=== PATIENT | female | born 1955 | race Caucasian/White ===

== ENCOUNTER 2021-07-12 16:02 | Outpatient (REF) | payer MEDICARE, SELFPAY ==
--- NOTE | ~2021-07-12 | MM_ITS ---
EXAMINATION: MM SCREENING DIGITAL BREAST TOMOSYNTHESIS, BILATERAL CLINICAL INFORMATION: Screening. Asymptomatic. The lifetime risk of breast cancer based on the Tyrer-Cuzick Model is 6.2%. COMPARISON: Mammography: July 16, 2019 and studies dating back to November 24, 2012 TECHNIQUE: Digital breast tomosynthesis is performed in both the craniocaudal and mediolateral oblique views along with computer-aided detection (CAD). Synthesized 2D images are generated from the tomosynthesis. FINDINGS: The breasts are heterogeneously dense, which may obscure small masses (ACR BI-RADS breast composition Category c). There are no significant masses, abnormal calcifications, or other abnormalities. MM/MM tomosynthesis screening BI IMPRESSION: There are no significant changes from prior study. ASSESSMENT: BI-RADS 1: Negative RECOMMENDATION: Routine annual mammography screening. This patient's information was entered into a reminder system with a target due date for their next mammogram.
== END 2021-07-12 16:03 | disposition home or self-care (01) ==
LOC: HO.MAMMO 16:02
PROVIDERS: Visit Provider Internal Medicine
DX: Z12.31 Encounter for screening mammogram for malignant neoplasm of breast (principal)
CPT/HCPCS: 77063; 77067

== ENCOUNTER 2021-10-09 07:17 | Day surgery (SDC) | payer MEDICARE, SELFPAY ==
--- NOTE | 2021-10-03 16:27 | PM.EVENT ---
Event Note Date of Service: 10/03/21 Event Note: H&P dictated Document [id number]
--- NOTE | 2021-10-03 18:48 | HP_ITS ---
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 She has been doing well on the mesalamine therapy and has no specific complaints. PAST MEDICAL HISTORY: 1. Ulcerative colitis as above. 2. Wandering atrial pacemaker, inactive. 3. Migraine headaches. PAST SURGICAL HISTORY: Includes diagnostic laparoscopy, section, and left inguinal hernia repair. CURRENT MEDICATIONS: Mesalamine. ALLERGIES: SULFA DRUGS. FAMILY HISTORY: This is positive for ulcerative colitis in her mother. SOCIAL HISTORY: There is no current tobacco, alcohol, or substance abuse. She is an anesthesiologist, currently retired. REVIEW OF SYSTEMS: SKIN: No pruritus. HEENT: Negative. PULMONARY: No shortness of breath or chest pain. GASTROINTESTINAL: As above. GENITOURINARY: Negative. NEUROPSYCHIATRIC: Negative. PHYSICAL EXAMINATION: vital signs are stable lungs are clear heart is regular without murmurs abdomen is soft and nontender. IMPRESSION: Ulcerative colitis. PLAN: Colonoscopy. She understands risks and benefits and agrees to proceed. MD RMASES Stafford/BLANCHE / [id number] MTDD
[2021-10-04 10:14] VITALS: BMI 17.6
[2021-10-09 07:34] VITALS: BP 106/68; PULSE 49; RESP 16; TEMP 36.8; O2SAT 98
--- NOTE | 2021-10-09 08:04 | HO.ANESPROP2 ---
[facility] Past Medical History Medical History Arthritis COVID-19 vaccine series completed Migraine Ulcerative colitis Wandering atrial pacemaker Family History Family history of problems with anesthesia: No Surgical History Surgical History H/O colonoscopy History of bunionectomy Hx of bilateral breast biopsy Hx of section Hx of dilation and curettage Hx of elbow surgery Hx of hand surgery Hx of left inguinal hernia repair Hx of tonsillectomy History of Problems with Anesthesia: No Social History Social History Are you a primary property caretaker to a significant other at home: No Do you presently have visiting nurse or other home services: No Patient Tobacco Use Status: Never used Tobacco Use of substances other than those prescribed or required for medical reasons: No Have you been hit, kicked, punched, or otherwise hurt by someone within the past year? If so, by whom?: No Are you DNR?: No Advance Directives: No (has HCP-will bring form DOS) Advance Directives Information Provided: Yes Advance Directives on File: No Recently lost weight without trying: No Eating poorly because of decreased appetite: No Nutrition Risks: No Nutritional Risk Poor oral hygiene: No Meds Allergies Allergy/AdvReac Type Severity Reaction Status Date / Time Sulfa (Sulfonamide Allergy Intermediate Hives Verified 10/09/21 07:26 Antibiotics) Home Medications Medication Instructions Recorded Confirmed Last Taken Type ifteyzxxyd-ukfffrajebwmr-ziplgzia 1 tab PO Q4-6H PRN 10/04/21 10/04/21 Unknown History 50 mg-325 mg-40 mg tablet mesalamine 1.2 gram tablet,delayed 2.4 g PO DAILY 10/04/21 10/04/21 Unknown History release (Lialda) propranolol 60 mg capsule,24 60 mg PO DAILY 10/04/21 10/04/21 10/09/21 04:45 History hr,extended release zolmitriptan 5 mg tablet (Zomig) 5 mg PO Q2-4H PRN 10/04/21 10/04/21 Unknown History lifitegrast 5 % eye drops in a 1 drp OPHTHALMIC (EYE) BID 10/09/21 10/09/21 Unknown History dropperette (Xiidra) Exam Exam Date and Time: October 09, [id number] Height,Weight and Vital Signs: Height 5 ft 5.5 in Weight 48.988 kg Last Vital Signs Temp 98.2 F 10/09/21 07:34 Pulse 49 L 10/09/21 07:34 Resp 16 10/09/21 07:34 BP 106/68 10/09/21 07:34 Pulse Ox 98 10/09/21 07:34 Airway Mallampati Class: I TM Dist: >3cm Neck ROM: Full Loose/Missing/Broken Teeth: No Heart: RRR Lungs: CTAB Assessment and Plan Assessment Anesthesia Assessment: Anesthesia Plan Discussed and Chart Reviewed Final Anesthetic Review Family History of Problems with Anesthesia: No History of Problems with Anesthesia: No NPO: Yes ASA Class: II Final Preanesthetic Review: No Changes in Pt Med Stat, Meds/Allgs Chart Reviewed, Consent Obtained/Reviewed and Anes Risks/Benef Reviewed Patient Risk: Low Procedure Risk: Low Assessment/Block/Sedation in SS: Assess/Block/Sedation-SS Anesthetic Plan Anesthetic Plan: MAC: Disposition: Standard PACU
[2021-10-09] MEDS: Lactated Ringers 1,000 ML 100 ML IVCONT (08:10)
--- NOTE | 2021-10-09 08:11 | MHC.SHP ---
Pre-Procedural Eval Section A Date of Service: 10/09/21 The patient is an INPATIENT: No Changes since office visit: No Cold of Flu in the past 2 weeks, No New Medical Problems, No Changes in Medication and No Patient answered all questions The History & Physical has been completed within 30 days and I have reviewed it.: Yes Section B Chief Complaint: ulcerative colitis Allergies: Allergies Allergy/AdvReac Type Severity Reaction Status Date / Time Sulfa (Sulfonamide Allergy Intermediate Hives Verified 10/09/21 07:26 Antibiotics) Plan I have reviewed the history and physical and performed a pertinent physical examination on my patient. No changes have occurred unless specified.
[2021-10-09 08:58] VITALS: BP 90/42; PULSE 52; RESP 14; RESP 18; TEMP 36.2; O2SAT 97
[2021-10-09 09:13] VITALS: BP 94/56; PULSE 51; RESP 18; TEMP 36.2; O2SAT 97
--- NOTE | 2021-10-09 09:28 | OP_ITS ---
SURGEON: Narayan Cheung MD INDICATIONS: Ulcerative colitis. PREOPERATIVE DIAGNOSIS: POSTOPERATIVE DIAGNOSIS: PROCEDURE PERFORMED: Colonoscopy to the terminal ileum with biopsy. ESTIMATED BLOOD LOSS: COMPLICATIONS: ANESTHESIA: ASSISTANTS: SPECIMENS: MEDICATIONS: Monitored anesthesia care. DESCRIPTION OF PROCEDURE: History and physical were performed. The risks and benefits of the procedure were explained to the patient. Informed consent was obtained. The patient was placed in left lateral decubitus position. A digital rectal exam was performed and was found to be normal. The Olympus pediatric video colonoscope was introduced into the rectum and advanced to the cecum without difficulty. The cecum was identified by transillumination, palpation, and identification of ileocecal valve. Examination was performed. The scope was removed. She tolerated the procedure well and has returned to recovery area in stable condition. FINDINGS: The terminal ileum was examined and appeared normal. This was biopsied. In the cecum was a small discrete area of ulceration measuring approximately 15 x 7 mm. Biopsies were obtained beginning in the cecum and extending all the way to the rectum in approximately all 4 quadrants every 10 cm. There was no evidence of active colitis in the remaining colon. The quality of the prep was good. Retroflexed examination was normal. IMPRESSION: Ulcerative colitis. RECOMMENDATION: 1. Follow up the biopsy results. 2. Continue Lialda. MD RAMSES Stafford/ANDREWSL / [id number]
--- NOTE | 2021-10-09 09:48 | PM.OP ---
Brief Operative Note Date of Service: 10/09/21 Pre-op diagnosis: ulcerative colitis Post-op diagnosis: same Procedure: colonoscopy Surgeon: Narayan Cheung Anesthesia: MAC Was an Airborne Sensor Specialist used for this Procedure?: No Estimated blood loss (mL): 10 Pathology: other (multiple bxs) Condition: stable Disposition: PACU
== END 2021-10-09 10:07 | disposition home or self-care (01) ==
PROVIDERS: PCP Internal Medicine; Visit Provider Internal Medicine Gastroenterology
PROC: 0DJD8ZZ Inspection of Lower Intestinal Tract, Via Natural or Artificial Opening Endoscopic (ICD-10-PCS; CPT 45378; principal; 2021-10-09 08:20)
DX: K51.90 Ulcerative colitis, unspecified, without complications (principal); Z79.899 Other long term (current) drug therapy; Z88.2 Allergy status to sulfonamides
CPT/HCPCS: 45380; 88305; J2250; J2405

== ENCOUNTER 2022-07-15 14:26 | Outpatient (REF) | payer MEDICARE, SELFPAY ==
--- NOTE | ~2022-07-15 | MM_ITS ---
EXAMINATION: MM SCREENING DIGITAL BREAST TOMOSYNTHESIS, BILATERAL CLINICAL INFORMATION: Screening. Asymptomatic. The lifetime risk of breast cancer based on the Tyrer-Cuzick Model is 6%. COMPARISON: Mammography: 07/12/2021, 07/16/2019, 06/13/2017 TECHNIQUE: Digital breast tomosynthesis is performed in both the craniocaudal and mediolateral oblique views along with computer-aided detection (CAD). Synthesized 2D images are generated from the tomosynthesis. Additional exaggerated right CC view is provided. FINDINGS: There are scattered areas of fibroglandular density (ACR BI-RADS breast composition Category b). Breast tissue composition borders on heterogeneously dense. There are no significant masses, abnormal calcifications, or other abnormalities. Parenchymal pattern is similar to prior studies. There is no developing density or architectural abnormality. The axilla and skin contours are unremarkable. No significant changes. MM/MM tomosynthesis screening BI IMPRESSION: No mammographic evidence of malignancy. ASSESSMENT: BI-RADS 1: Negative RECOMMENDATION: Routine annual mammography screening. This patient's information was entered into a reminder system with a target due date for their next mammogram.
== END 2022-07-15 14:27 | disposition home or self-care (01) ==
LOC: HO.MAMMO 14:26
PROVIDERS: Visit Provider Internal Medicine
DX: Z12.31 Encounter for screening mammogram for malignant neoplasm of breast (principal)
CPT/HCPCS: 77063; 77067

== ENCOUNTER 2023-07-17 09:30 | Outpatient (REF) | payer MEDICARE, SELFPAY ==
--- NOTE | ~2023-07-17 | MM_ITS ---
EXAMINATION: MM SCREENING DIGITAL BREAST TOMOSYNTHESIS, BILATERAL CLINICAL INFORMATION: Screening. Asymptomatic. COMPARISON: Mammography: 07/15/2022, 07/12/2021, 07/16/2019, 06/13/2017, and dating back to 2012. TECHNIQUE: Digital breast tomosynthesis is performed in both the craniocaudal and mediolateral oblique views along with computer-aided detection (CAD). Synthesized 2D images are generated from the tomosynthesis. A second left CC 3-D nipple in profile was also provided. FINDINGS: The breasts are heterogeneously dense, which may obscure small masses (ACR BI-RADS breast composition Category c). Stable benign, dystrophic appearing scattered calcifications in both breasts. No suspicious clustering or pleomorphism. No masses, or areas of architectural distortion. The parenchymal pattern is overall unchanged from prior exams. No skin or axillary changes. MM/MM tomosynthesis screening BI IMPRESSION: No mammographic evidence of malignancy. Stable benign findings. ASSESSMENT: BI-RADS BI-RADS 2 - Benign Findings RECOMMENDATION: Routine annual mammography screening. 1 year F/U This examination should not preclude the clinical evaluation of a suspicious palpable abnormality. This patient's information was entered into a reminder system with a target due date for their next mammogram.
== END 2023-07-17 09:31 | disposition home or self-care (01) ==
LOC: HO.MAMMO 09:30
PROVIDERS: PCP Internal Medicine; Visit Provider Internal Medicine
DX: Z12.31 Encounter for screening mammogram for malignant neoplasm of breast (principal)
CPT/HCPCS: 77063; 77067

== ENCOUNTER → 2023-07-17 09:45 | Outpatient (BNV) | payer MEDICARE, SELFPAY | PROVIDERS: PCP Internal Medicine; Visit Provider Radiology Diagnostic Radiology | DX: Z12.31 Encounter for screening mammogram for malignant neoplasm of breast (principal) | CPT/HCPCS: 77063; 77067 ==

== ENCOUNTER 2024-07-19 11:53 | Outpatient (REF) | payer MEDICARE, SELFPAY | END 2024-07-19 11:54 | disposition home or self-care (01) | LOC: HO.MAMMO 11:53 | PROVIDERS: PCP Internal Medicine; Visit Provider Internal Medicine | DX: Z12.31 Encounter for screening mammogram for malignant neoplasm of breast (principal) | CPT/HCPCS: 77063; 77067 ==

== ENCOUNTER → 2024-07-19 12:00 | Outpatient (BNV) | payer MEDICARE, SELFPAY | PROVIDERS: PCP Internal Medicine; Visit Provider Internal Medicine | DX: Z12.31 Encounter for screening mammogram for malignant neoplasm of breast (principal) | CPT/HCPCS: 77063; 77067 ==

== ENCOUNTER 2024-11-12 06:54 | Day surgery (SDC) | payer MEDICARE, SELFPAY ==
[2024-11-10 12:59] VITALS: BMI 18.8
--- NOTE | 2024-11-10 14:10 | HO.ANESPROP2 ---
Documented by User: Annabella Dominguez NP 11/10/24 14:10 HPI - Anesthesia Eval Consult details Narrative: 69yo F for Colon[facility] Past Medical History Medical History Tinnitus Ulcerative colitis Arthritis Migraine Family History Family history of problems with anesthesia: No Surgical History Surgical History Hx of elbow surgery Hx of section Hx of bilateral breast biopsy Hx of left inguinal hernia repair Hx of dilation and curettage Hx of hand surgery Hx of tonsillectomy H/O colonoscopy History of bunionectomy History of Problems with Anesthesia: No Social History Social History Are you a primary hospice patient care secretary to a significant other at home: No Do you presently have visiting nurse or other home services: No Patient Tobacco Use Status: Never used Tobacco Meds Allergies Allergy/AdvReac Type Severity Reaction Status Date / Time Sulfa (Sulfonamide Allergy Intermediate Hives Verified 11/12/24 07:21 Antibiotics) Home Medications ?Medication ?Instructions ?Recorded ?Confirmed ?Last Taken ?Type mesalamine 1.2 gram tablet,delayed 2.4 g PO DAILY 10/04/21 11/12/24 Unknown History release (Lialda) propranolol 60 mg capsule,24 60 mg PO DAILY 10/04/21 11/12/24 10/09/21 04:45 History hr,extended release lifitegrast 5 % eye drops in a 1 drp ophthalmic (eye) BID 10/09/21 11/12/24 Unknown History dropperette (Xiidra) multivitamin 1 tab PO DAILY 11/10/24 11/12/24 Unknown History rizatriptan 10 mg tablet 10 mg PO ONCE PRN Migraine Headache 11/10/24 11/12/24 Unknown History vitamin K2 45 mg PO DAILY 11/12/24 11/12/24 Unknown History Exam Height,Weight and Vital Signs: Height 5 ft 4.8 in Weight 51 kg Assessment and Plan Assessment Anesthesia Assessment: Chart Reviewed Final Anesthetic Review Family History of Problems with Anesthesia: No History of Problems with Anesthesia: No Documented by User: Arlet Zarate MD 11/12/24 08:18 [facility] Past Medical History Medical History Tinnitus Ulcerative colitis Arthritis Migraine Family History Family history of problems with anesthesia: No Surgical History Surgical History Hx of elbow surgery Hx of section Hx of bilateral breast biopsy Hx of left inguinal hernia repair Hx of dilation and curettage Hx of hand surgery Hx of tonsillectomy H/O colonoscopy History of bunionectomy History of Problems with Anesthesia: No Social History Social History Are you a primary hospice patient care secretary to a significant other at home: No Do you presently have visiting nurse or other home services: No Patient Tobacco Use Status: Never used Tobacco Meds Allergies Allergy/AdvReac Type Severity Reaction Status Date / Time Sulfa (Sulfonamide Allergy Intermediate Hives Verified 11/12/24 07:21 Antibiotics) Home Medications ?Medication ?Instructions ?Recorded ?Confirmed ?Last Taken ?Type mesalamine 1.2 gram tablet,delayed 2.4 g PO DAILY 10/04/21 11/12/24 Unknown History release (Lialda) propranolol 60 mg capsule,24 60 mg PO DAILY 10/04/21 11/12/24 10/09/21 04:45 History hr,extended release lifitegrast 5 % eye drops in a 1 drp ophthalmic (eye) BID 10/09/21 11/12/24 Unknown History dropperette (Xiidra) multivitamin 1 tab PO DAILY 11/10/24 11/12/24 Unknown History rizatriptan 10 mg tablet 10 mg PO ONCE PRN Migraine Headache 11/10/24 11/12/24 Unknown History vitamin K2 45 mg PO DAILY 11/12/24 11/12/24 Unknown History Exam Height,Weight and Vital Signs: Height 5 ft 4.8 in Weight 51 kg Vital Signs Temp Pulse Resp BP Pulse Ox O2 Del Method 11/12/24 07:38 97.9 F 53 16 121/75 98 Room Air Airway Mallampati Class: II TM Dist: >3cm Neck ROM: Full Loose/Missing/Broken Teeth: No Heart: RRR Lungs: CTAB Assessment and Plan Assessment Anesthesia Assessment: Anesthesia Plan Discussed and Chart Reviewed Final Anesthetic Review Family History of Problems with Anesthesia: No History of Problems with Anesthesia: No NPO: Yes ASA Class: II Final Preanesthetic Review: No Changes in Pt Med Stat, Meds/Allgs Chart Reviewed, Consent Obtained/Reviewed and Anes Risks/Benef Reviewed Patient Risk: Low Procedure Risk: Low Assessment/Block/Sedation in SS: Assess/Block/Sedation-SS Anesthetic Plan Anesthetic Plan: TIVA Disposition: Standard PACU
--- NOTE | 2024-11-10 18:54 | HP_ITS ---
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 She has been taking mesalamine and symptoms have been well controlled. She has no complaints of rectal bleeding or change in her bowel habits. Weight and appetite have been stable. She last underwent colonoscopy in 2021, which showed no active disease and no dysplasia. PAST MEDICAL HISTORY: 1. Ulcerative colitis. 2. Migraine headaches. PAST SURGICAL HISTORY: Diagnostic laparoscopy, section, and left inguinal hernia repair. CURRENT MEDICATIONS: Her current medication list is reviewed in the chart. ALLERGIES: SULFA. FAMILY HISTORY: Positive for ulcerative colitis in her mother. SOCIAL HISTORY: There are no current substance abuse issues, tobacco, or alcohol problems. REVIEW OF SYSTEMS: SKIN: No pruritus. HEENT: Negative. CARDIOPULMONARY: No shortness of breath or chest pain. GASTROINTESTINAL: As above. GENITOURINARY: Negative. NEUROPSYCHIATRIC: Negative. PHYSICAL EXAMINATION: GENERAL: Shows a pleasant female, in no acute distress. VITAL SIGNS: Stable. LUNGS: Clear HEART: Normal S1 and S2 ABDOMEN: Soft, nontender IMPRESSION: Ulcerative colitis. PLAN: Colonoscopy. Risks and benefits of the procedure have been discussed with the patient who understands and agrees to proceed. MD RAMSES Stafford/BLANCHE / [id number] MTDD
--- NOTE | 2024-11-12 07:25 | MHC.SHP ---
Pre-Procedural Eval Section A - 24 Hr Update-Section A only Date of Service: 11/12/24 The patient is an INPATIENT: No Changes since office visit: No Cold of Flu in the past 2 weeks, No New Medical Problems, No Changes in Medication and No Patient answered all questions The patient has been examined within 24 hours of the surgical procedure. The History & Physical has been completed within 30 days and I have reviewed it.: Yes Section B - Complete if H&P > 30 days Chief Complaint: Encounter for screening for malignant neoplasm of Allergies: Allergies Allergy/AdvReac Type Severity Reaction Status Date / Time Sulfa (Sulfonamide Allergy Intermediate Hives Verified 11/12/24 07:21 Antibiotics) Plan I have reviewed the history and physical and performed a pertinent physical examination on my patient. No changes have occurred unless specified. Time Spent With Patient Time: Total time managing care of this patient today ____ minutes.
[2024-11-12 07:38] VITALS: BP 121/75; PULSE 53; RESP 16; TEMP 36.6; O2SAT 98; BMI 17.8
[2024-11-12] MEDS: Lactated Ringers 1,000 ML 100 ML IVCONT (07:52)
[2024-11-12 09:20] VITALS: BP 89/51; PULSE 50; RESP 16; TEMP 36.6
--- NOTE | 2024-11-12 09:23 | P.BOP_ITS ---
Brief Operative Note Date of Service: 11/12/24 Pre-op diagnosis: ulcerative colitis Post-op diagnosis: same Procedure: colonoscopy Surgeon: Narayan Cheung MD Anesthesia: MAC Was an Assistant To The Dean used for this Procedure?: No Estimated blood loss (mL): 5 Pathology: other Condition: stable Disposition: PACU
[2024-11-12 09:30] VITALS: BP 93/54; PULSE 52; RESP 16; O2SAT 98
--- NOTE | 2024-11-12 09:36 | OP_ITS ---
DATE OF SERVICE: 11/12/2024 SURGEON: Narayan Cheung MD INDICATIONS: Ulcerative colitis. PREOPERATIVE DIAGNOSIS: POSTOPERATIVE DIAGNOSIS: PROCEDURE PERFORMED: Colonoscopy to the terminal ileum with biopsy. ESTIMATED BLOOD LOSS: COMPLICATIONS: ANESTHESIA: Medications, monitored anesthesia care. ASSISTANTS: SPECIMENS: DESCRIPTION OF PROCEDURE: History and physical was performed. The risks and benefits of the procedure were explained to the patient and informed consent was obtained. The patient was placed in the left lateral decubitus position. A digital rectal exam was performed and was found to be normal. The Olympus pediatric video colonoscope was introduced in the rectum and advanced to the cecum. The cecum was identified by transillumination, palpation, and identification of ileocecal valve. Examination was performed. The scope was removed. She tolerated the procedure well and was taken to recovery room in stable condition. FINDINGS: The terminal ileum was normal. This was biopsied. The visualized colonic mucosa was normal without evidence of active colitis and the mucosa appeared normal. Biopsies were obtained in all 4 quadrants approximately every 10 cm beginning in the cecum and extending to the rectum. No polyps were identified. Retroflexed examination showed some small internal hemorrhoids. There were some external hemorrhoids noted on withdrawal of the colonoscope. IMPRESSION: Ulcerative colitis. RECOMMENDATIONS: Follow up the biopsy results. MD RAMSES Stafford/BLANCHE / [id number]
== END 2024-11-12 10:16 | disposition home or self-care (01) ==
PROVIDERS: PCP Internal Medicine; Visit Provider Internal Medicine Gastroenterology
PROC: 0DJD8ZZ Inspection of Lower Intestinal Tract, Via Natural or Artificial Opening Endoscopic (ICD-10-PCS; CPT 45378; principal; 2024-11-12 08:20)
DX: Z12.11 Encounter for screening for malignant neoplasm of colon (principal); K51.90 Ulcerative colitis, unspecified, without complications; K64.8 Other hemorrhoids; K64.4 Residual hemorrhoidal skin tags; G43.909 Migraine, unspecified, not intractable, without status migrainosus; Z79.899 Other long term (current) drug therapy; Z88.2 Allergy status to sulfonamides; Z98.890 Other specified postprocedural states
CPT/HCPCS: 45380; 88305; J2003; J2704

== ENCOUNTER 2025-03-01 10:43 | Outpatient (REF) | payer MEDICARE, SELFPAY ==
--- OUTSIDE RECORDS SUMMARY | 2024-10-29 03:30 | XMS_ITS ---
Author Organization [facility] Address [address] [place] [phone] Care Team Providers Care Motor Vehicles Inspector Name Role Phone Xavier Molina, Soledad Primary Care Provider Unav ailNarayan Mckeon Jr Unavailable [phone] Narayan Cheung Unavailable Unavailable REASON FOR VISIT ulcerative colitis Encounters Encounter Location Date Provider Diagnosis [facility] [place] [address] [place] [phone] 10/29/2024 Narayan Cheung Jr Plan Of Treatment No Information Progress Notes * ZOE DEEEDOB:[birth year] (69 yo F)Acc No.[id number]:10/29/2024 COLON WITH MAC Patient: RAMSEY MAST Provider: Suzi Cheung MD :1955 A ge:69 Y S ex:Female Date:10/29/2024 Address:[address] [place], [place] [phone] Pcp:Soledad Park M.D. Subjective: * Chief Complaints: * 1 . Ulcerative colitis. * Medical History: Objective: * Vitals: Assessment: Plan: * Treatment: * * The named appointment provid er may or may not be the originator of this progress note, and it is not deemed complete until electronically signed by the appointment provider. Sign off status: Pending * Provider: Suzi Cheung MD Date: 0 10/29/2024 Generated for Printi ng/Faxing/eTransmitting on: 0 03/01/2025 11:50 AM EDT
--- NOTE | ~2025-03-01 | MM_ITS ---
EXAMINATION: DXA BONE DENSITY AXIAL HISTORY: OSTEOPOROSIS TECHNIQUE: MVERSE Dual energy absorptiometry (DEXA) of the lumbar spine, total left hip, and femoral neck was performed. COMPARISON: There are no prior studies for comparison. FINDINGS: The bone mineral density of the lumbar spine is 0.979 g/cm2, corresponding to a T-score of -1.7, and a Z-score of 0.5. This is indicative of osteopenia. The bone mineral density of the left total hip is 0.811 g/cm2, corresponding to a T-score of -1.6, and a Z-score of .2. This is indicative of osteopenia. The bone mineral density of the left femoral neck is 0.694 g/cm2, corresponding to a T-score of -2.5, and a Z-score of -0.5. This is indicative of osteoporosis. FRACTURE RISK: The FRAX index suggests a risk of major osteoporotic fracture of 12.1%, and of hip fracture 3.1%. MM/XR DEXA axial skeleton IMPRESSION: Based on bone mineral density, and according to World Health Organization (WHO) criteria, the diagnosis is consistent with osteoporosis. Statistically, 68% of repeat scans fall within 1 SD (+/- 0.010 g/cm2 for AP spine L1-L4) and 1 SD (+/- 0.012 g/cm2 for femur total) FRAX is a trademark of the [employer]'s [employer] Met[employer] Disease, a World Health Organization (WHO) Collaborating Center. Electronically signed by: Benjamin Mcdonald MD 03/01/2025 11:16 AM EDT
--- OUTSIDE RECORDS SUMMARY | 2025-03-01 11:50 | XMS_ITS | Patient Health Record ---
Author Organization [facility] Address [address] [place] [address] Care Team Providers Care Financial Accounting Manager Name Role Phone Soledad Park Primary Care Provider UnavailJose Arroyo Unavailable [phone] Allergies Allergen (clinical drug ingredient) Drug/Non Drug Allergy documented on EMR Reaction Allergy Type Onset Date Status ibuprofen Advil avoid due to colitis Drug Allergy Active Aleve avoid due to colitis Drug Allergy Active aspirin Aspirin avoid due to colitis Drug Allergy Active sulfamethoxazole / trimethoprim Bactrim hives Drug Allergy Active Motrin avoid due to colitis Drug Allergy Active Reason For Referral No Information Medications Medication SIG (Take, Route, Frequency, Duration) Notes Start Date End Date Status Delzicol 1.6 g Not-T aking Fioricet Not-Taking ZOLMitriptan 5 MG Orally No t-Taking Night Splint AFO - L1930 as directed Active Lialda 1.2 gm 2 tablets Orally Onc e a day Not-Taking Physical Therapy . . . 2-3x/week; Duration: 3-4 weeks Not-Taking Gemtesa 75 MG 1 tablet Orally Once a day; Duration: 30 day(s) Active Voltaren 1 % as directed Transdermal Not-Taking Mesalamine Active Propranolol HCl 60 MG 1 tablet Orally On ce a day; Duration: 30 day(s) Active Gabapentin 300 MG 1 tablet Orally Once a day Not-Taking oxyCODONE HCl 5 ml as needed N ot-Taking Social History Tobacco Use: Social History Observation Description Date Details (start date - stop date) Never Smoker NA - NA Tobacco Use/Smoking Question Answer Notes Are you a: nonsmoker Additional Findings: Tobacco Non-User Aggressive non-smoker Alcohol Screen Question Answer Notes Did you have a drink contain ing alcohol in the past year? Yes How often did you have a dri nk containing alcohol in the past year? 2 to 4 times a month (2 points) How many drinks did you have on a typical day when you were drinking in the past year? 1 or 2 drinks (0 point) How often did you have 6 or more drinks on one occasion in the past year? Never (0 point) Points 2 Interpretation Negative Tobacco use other than smoking: Question Answer Notes Are you an other tobacco user? 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) Active confirmed Plan Of Treatment Pending Test Test Name Order Date X ray : Foot, left 3V 08/28/2018 X ray : Foot, left 3V 01/12/2019 X ray : Foot, left 3V 02/11/2019 X ray : Foot, left 3V 10/25/2022 X ray : Foot, right 3V 10/25/2022 [id number], [id number]-LAHSO/INJECT, JOINT/BURSA 0 08/28/2018 X ray : Ankle, right 3V 08/28/2018 Insurance Providers Payer Name Payer Address Payer Phone Subscriber Number Group Number Insured Name Patient Relationship to Insured Coverage Start Date Coverage End Date [facility] 65 Medicare Preferred [address] [place] [address] [phone] [id number] Vaishnavi Morales Self - patient is the insured Medical (General) History Medical History History ICD Code Headaches/Migraines Chicken pox Colitis Syncope Overactive bladder (OAB) Surgical History Surgery Date(Month/Year) tonsillectomy 1978 tendon repair LT hand 1990 diagnostic laproscopy 1994 LT inguinal hernia repair 1995 breast biopsy (beigne) 1997 lateral release RT elbow 2009 section 1998 Parmar Left 01/07/2019
--- OUTSIDE RECORDS SUMMARY | 2025-03-01 11:50 | XMS_ITS | Encounter Summary ---
Author Organization [facility] Address [address] [place] [address] Phone Care Team Providers Care Chief Electrician Name Role Phone Soledad Park MD Unavailable [phone] Soledad Park MD Primary Care Provider Alesia Broussard CANCER PROGRAM CONSULTANT Primary Care Provider Malathi Trejo CANCER PROGRAM CONSULTANT Primary Care Provider Soledad Park MD Primary Care Provider Bety Roes MD Unavailable Encounter Details Date Type Department Care Team (Late st Contact Info) Description 11/05/2017 Transcribe Orders [facility] [address] [place] [address] [place] [address] Soledad Park MD [address] [place] [address], 2nd [place] [address] Cough (Primary Dx) Social History Tobacco Use Types Packs/Day Years Used Date Smoking Tobacco: Never Smokeless Tobacco: Never Alcohol Use Standard Drinks/Week Comments Yes 3 (1 standard drink = 0.6 oz pur e alcohol) Comments Unknown Sex and Gender Information Value Date Recorded Sex Assigned at Not on file Legal Sex Female 7:47 PM EST Gender Identity Not on file Sexual Orientation Not on file 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 on file prior Wing Not on file Not on file Not on file documented as of this encounter Plan of Treatment Upcoming Encounters Date Type Department Care Team (Late st Contact Info) Description 04/14/2025 12:15 PM EDT Office Visit [facility] [address] [place] [address] Soledad Park MD [address] [place] [address] Maria Guadalupe Garcia, PT [address] [place] [address] 04/21/2025 12:15 PM EDT Office Visit [facility] [address] [place] [address] Soledad Park MD [address] [place] [address] Maria Guadalupe Garcia, PT [address] [place] [address] 04/25/2025 11:30 AM EDT Office Visit [facility] [address] [place] [address] Soledad Park MD [address] [place] [address] Eliseo Mccloud, CAFETERIA MANAGER [address] [place] [address] 04/28/2025 12:15 PM EDT Office Visit [facility] [address] [place] [address] Soledad Park MD [address] [place] [address] Maria Guadalupe Garcia, PT [address] [place] [address] 05/02/2025 11:30 AM EDT Office Visit [facility] [address] [place] [address] Soledad Park MD [address] [place] [address] Eliseo Mccloud, [address] [address] 05/05/2025 12:15 PM EDT Office Visit [facility] [address] [place] [address] Soledad Park MD [address] [place] [address] Maria Guadalupe Garcia, PT [address] [place] [address] 05/09/2025 11:30 AM EDT Office Visit [facility] [address] [place] [address] Soledad Park MD [address] [place] [address] Eliseo Mccloud, [address] [address] 05/12/2025 1:00 PM EDT Office Visit [facility] [address] [place] [address] Soledad Park MD [address] [place] [address] [email or web address] Maria Guadalupe Garcia, PT [address] [place] [address] 09/12/2025 11:30 AM EST Office Visit [facility] [address] [place] [address] [place] [address] Soledad Park MD [address] [place] [address] [email or web address] documented as of this encounter Visit Diagnoses Diagnosis Cough- Primary documented in this encounter Additional Health Concerns Infection Onset Date Last Indicated Resolved Time CoV-Risk 11/19/2019 11/19/2019 12/03/2019 1:23 AM EDT documented as of this encounter Care Teams Chief Electrician Relationship Specialty Start Date End Date Soledad Park MD [address] [place] [address] PCP - General 08/07/17 05/21/18 Alesia Broussard NP [address] [place] [address] [place] [address] PCP - General Family Medicine 05/22/18 11/14/19 Malathi Trejo NP [address] [place] [address] PCP - General 11/15/19 12/28/20 Soledad Park MD [address] [place] [address] [email or web address] PCP - General Internal Medicine 12/29/20 Soledad aPrk MD [address] [place] [address], 2[address] [place] [address] [email or web address] Historical LMR Provider 05/24/17 Bety Rose MD [address] [place] [address] Dermatology 12/29/20 documented as of this encounter Additional Source Comments The information contained in this document represents components of the legal health record. It is not the complete legal health record.[facility]
== END 2025-03-01 10:44 | disposition home or self-care (01) ==
LOC: HO.MAMMO 10:43
PROVIDERS: PCP Internal Medicine; Visit Provider Internal Medicine
DX: M81.6 Localized osteoporosis [Lequesne] (principal)
CPT/HCPCS: 77080

== ENCOUNTER → 2025-03-01 11:00 | Outpatient (BNV) | payer MEDICARE, SELFPAY | PROVIDERS: PCP Internal Medicine; Visit Provider Radiology Diagnostic Radiology | DX: E28.39 Other primary ovarian failure (principal) | CPT/HCPCS: 77080 ==

== ENCOUNTER 2025-07-22 11:32 | Outpatient (REF) | payer MEDICARE, SELFPAY ==
--- OUTSIDE RECORDS SUMMARY | 2024-10-29 02:30 | XMS_ITS ---
Author Organization [facility] Address [address] [place] [phone] Care Team Providers Care Cv/Cvn Cv Tsc System Operator Name Role Phone Xavier Molina, Soledad Primary Care Provider Unav ailable Narayan Cheung Jr Unavailable Narayan Cheung Unavailable Unavailable REASON FOR VISIT ulcerative colitis Encounters Encounter Location Date Provider Diagnosis [facility] Outpatient [address] [place] [id number] 10/29/2024 Narayan Cheung Jr Plan Of Treatment No Information Progress Notes * ZOE DEEEDOB:[birth year] (70 yo F)Acc No.[id number]:10/29/2024 COLON WITH MAC Patient: RAMSEY MAST Provider: Suzi Cheung MD :1955 A ge:69 Y S ex:Female Date:10/29/2024 Address:[address] [place], [place] [id number] Pcp:Soledad Park M.D. Subjective: * Chief Complaints: * U lcerative colitis * The named appointment provid er may or may not be the originator of this progress note, and it is not deemed complete until electronically signed by the appointment provider. Sign off status: Pending * Provider: Suzi Cheung MD Date: 0 10/29/2024 Generated for Rejii ng/Terezag/eTransmitting on: 1 09/22/2024 01:40 PM EST
--- OUTSIDE RECORDS SUMMARY | 2024-11-12 03:20 | XMS_ITS ---
Author Organization [facility] Address [address] [place] [phone] Care Team Providers Care Monument Carver Name Role Phone Soledad Park M.D. Primary Care Provider Narayan Gibbons Jr Unavailable Narayan Cheung Unavailable Unavailable REASON FOR VISIT ulcerative colitis Medications Medication SIG (Take, Route, Frequency, Duration) Notes Start Date End Date Status predniSONE 10 MG Tablet 3 tablets daily with food for 7-10 days, taper by one tablet weekly. Orally Once a day 04/14/2015 Active Delzicol 400 MG Capsule Delayed Release Four capsules Orally 3 times a day; Duration: 30 day(s) 04/14/2015 Active Lialda 1.2 GM Tablet Delayed Release 2 tablets b.i.d. Orally; Duration: 90 days 05/18/2015 Active Encounters Encounter Location Date Provider Diagnosis [facility] Outpatient [address] [place] [phone] 11/12/2024 Narayan Cheung Jr Ulcerative colitis K51.90 Assessments Encounter Date Diagnosis (ICD Code) Assessment Notes Treatment Notes Treatment Clinical Notes Section Notes 11/12/2024 Ulcerative colitis (ICD-10 - K51.90) Plan Of Treatment No Information Progress Notes * ARUNADEWAYNEKEVINOB:[birth year] (70 yo F)Acc No.[id number]:11/12/2024 COLON WITH MAC Patient: RAMSEY MAST Provider: Suzi Cheung MD :1955 A ge:69 Y S ex:Female Date:11/12/2024 [address] [facility] Pcp:Soledad Park M.D. Subjective: * Chief Complaints: * U lcerative colitis * Medications: T akingpredniSONE 10 MG Tablet 3 tablets daily with food for 7-10 days, taper by one tablet weekly. Orally Once a day Delzicol 400 MG Capsule Delayed Release Four capsules Orally 3 times a day Lialda 1.2 GM Tablet Delayed Release 2 tablets b.i.d. Orally Taking predniSONE 10 MG Tablet 3 tablets daily with food for 7-10 days, taper by one tablet weekly. Orally Once a day Taking Delzicol 400 MG Capsule Delayed Release Four capsules Orally 3 times a day Taking Lialda 1.2 GM Tablet Delayed Release 2 tablets b.i.d. Orally Assessment: * Assessment: 1. U lcerative colitis - K51.90 (Primary) Plan: * Procedure Codes: 4 5380 COLONOSCOPY AND [id number] INTRVL 3+YRS PTS CLNSCP DOCD Billing Information: * Procedure Codes: 46707 COLONOSCOPY AND BIOPSY. 0529F INTRVL 3+YRS PTS CLNSCP DOCD. * The named appointment provid er may or may not be the originator of this progress note, and it is not deemed complete until electronically signed by the appointment provider. Sign off status: Pending * Provider: Suzi Cheung MD Date: 0 11/12/2024 Generated for Steve mckinney/Alejandro/Korinaitting on: 1 09/22/2024 01:41 PM EST
--- NOTE | ~2025-07-22 | MM_ITS ---
EXAMINATION: MM SCREENING DIGITAL BREAST TOMOSYNTHESIS, BILATERAL CLINICAL INFORMATION: Screening. Asymptomatic. COMPARISON: Mammography: Comparison is made with available priors TECHNIQUE: Digital breast mammography with tomosynthesis is performed in both the craniocaudal and mediolateral oblique views along with computer-aided detection (CAD). FINDINGS: The breasts are heterogeneously dense, which may obscure small masses. There are no significant masses, abnormal calcifications, or other abnormalities. MM/MM tomosynthesis screening BI IMPRESSION: No mammographic evidence of malignancy. ASSESSMENT: BI-RADS Category 1: Negative RECOMMENDATION: Routine annual mammography screening. 1 year F/U This examination should not preclude the clinical evaluation of a suspicious palpable abnormality. This patient's information was entered into a reminder system with a target due date for their next mammogram. Electronically signed by: Staci Rudd DO 07/26/2025 10:36 AM [facility]
--- OUTSIDE RECORDS SUMMARY | 2025-07-22 13:41 | XMS_ITS | Encounter Summary ---
Author Organization [facility] Address [address] [place] [address] Phone Care Team Providers Care Utility Tender Carding Name Role Phone Soledad Park MD Unavailable Soledad Park MD Primary Care Provider Alesia Broussard KNOT TYING OPERATOR Primary Care Provider Unava Malathi Peterson KNOT TYING OPERATOR Primary Care Provider Soledad Park MD Primary Care Provider Bety Rose MD Unavailable [phone] Encounter Details Date Type Department Care Team (Late st Contact Info) Description 11/05/2017 Transcribe Orders [facility] [address] [place] [address] Soledad Park MD [address] [place] [address], [address] [place] [address] Cough (Primary Dx) Social History Tobacco Use [...] 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 on file Not on file Not on file documented as of this encounter Plan of Treatment Upcoming Encounters Date Type Department Care Team (Late st Contact Info) Description 09/12/2025 11:30 AM EST Office Visit [facility] Primary Care [address] [place] [address] Soledad Park MD [address] [place] [address] documented as of this encounter Visit Diagnoses Diagnosis Cough- Primary documented in this encounter Additional Health Concerns Infection Onset Date Last Indicated Resolved Time CoV-Risk 11/19/2019 11/19/2019 12/03/2019 1:23 AM EDT documented as of this encounter Care Teams Utility Tender Carding Relationship Specialty Start Date End Date Soledad Park MD [address] [place] [address] PCP - General 08/07/17 05/21/18 Alesia Broussard, KNOT TYING OPERATOR PCP - General Family Medicine 05/22/18 11/14/19 Malathi Trejo NP [address] [place] [address] PCP - General 11/15/19 12/28/20 Soledad Park MD [address] [place] [address] PCP - General Internal Medicine 12/29/20 Soledad Park MD [address] [place] [address] Historical LMR Provider 05/24/17 Bety Rose MD [address] [place] [address] Dermatology 12/29/20 documented as of this encounter Additional Source Comments The information contained in this document represents components of the legal health record. It is not the complete legal health record.[facility]
--- OUTSIDE RECORDS SUMMARY | 2025-07-22 13:41 | XMS_ITS | Patient Health Record ---
Author Organization [facility] Address [address] [place] [address] Care Team Providers Care Group Practice Pediatrician Name Role Phone Soledad Park M.D. Primary Care Provider Unav Narayan Mackenzie Jr Unavailable Narayan Cheung Unavailable Unavailable Results Component Value Reference Range Notes Pathology Reviewed date:11/19/2024 08:25:49 AM Interpretation: Performing Lab:[facility], [address] [place] [phone] Notes/Report: Reason For Referral No Information Medications Medication SIG (Take, Route, Frequency, Duration) Notes Start Date End Date Status predniSONE 10 MG Tablet 3 tablets daily with food for 7-10 days, taper by one tablet weekly. Orally Once a day 04/14/2015 Active Lialda 1.2 GM Tablet Delayed Release 4 Orally Once a day; Duration: 90 days 05/18/2015 Active Delzicol 400 MG Capsule Delayed Release Four capsules Orally 3 times a day; Duration: 30 day(s) 04/14/2015 Active Problems Problem Type SNOMED Code ICD Code Onset Dates Problem Status W/U Status Risk Notes Problem Ulcerative colitis (97272368) Ulcerative colitis (K51.90) Active confirmed Problem Ulcerative colitis (70078589) Ulcerative colitis with complication, unspecified location (K51.919) Active confirmed Encounters Encounter Location Date Provider Diagnosis [facility] Out[facility] [address] [place] [id number] 11/12/2024 Narayan Cheung Jr Ulcerative colitis K51.90 [facility] [address] [place] [phone] 08/24/2024 Narayan Cheung Jr Ulcerative colitis with complication, unspecified location K51.919 [facility] [address] [place] [address] 11/10/2024 Narayan Cheung Jr [facility] [address] [place] [address] 11/19/2024 Narayan Cheung Jr [facility] [address] [place] [phone] 03/04/2025 Narayan Cheung Jr [facility] [address] [place] [address] 06/15/2025 Narayan Cheung Jr Assessments Encounter Date Diagnosis (ICD Code) Assessment Notes Treatment Notes Treatment Clinical Notes Section Notes 11/12/2024 Ulcerative colitis (ICD-10 - K51.90) 08/24/2024 Ulcerative colitis with complication, unspecified location (ICD-10 - K51.919) Plan Of Treatment Future Test Test Name Order Date COLONOSCOPY 08/26/2024 Insurance Providers Payer Name Payer Address Payer Phone Subscriber Number Group Number Insured Name Patient Relationship to Insured Coverage Start Date Coverage End Date [facility] [address] [place] [address] [id number] RAMSEY DEE Self - patient is the insured Medical (General) History Medical History History ICD Code Ulcerative colitis, left-sided , colonos copy 10/23, no active disease Overactive bladder Migraine headaches
--- OUTSIDE RECORDS SUMMARY | 2025-07-22 13:41 | XMS_ITS | Encounter Summary ---
Author Organization [facility] Address [address] [place] [address] Phone Care Team Providers Care Fish Rod Maker Name Role Phone Soledad Park MD Unavailable [phone] Soledad Park MD Primary Care Provider Alesia Broussard NP Primary Care Provider Unava Malathi Peterson NP Primary Care Provider Soledad Park MD Primary Care Provider Bety Rose MD Unavailable [phone] Reason for Referral * Outpatient Procedure - Closed Specialty Diagnoses / Procedures Referred By Contac t Referred To Contact Diagnoses Syncope and collapse Procedures Adult Echo TTE Alesia Broussard NP Referral ID Status Reason Start Date Expiration Date Visits Re quested Visits Authorized [id number] Closed 05/21/2018 05/21/2019 1 1 Encounter Details Date Type Department Care Team (Late st Contact Info) Description 05/21/2018 Ancillary Orders [facility] Department [address] [place] [address] Alesia Broussard NP Syncope and collapse Social History Tobacco Use Types Packs/Day Years [...] 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 on file Not on file Not on file documented as of this encounter Plan of Treatment Upcoming Encounters Date Type Department Care Team (Late st Contact Info) Description 09/12/2025 11:30 AM EST Office Visit [facility] Primary Care [address] [place] [address] Soledad Park MD [address] [facility], [address] [place] [address] documented as of this encounter Results * TTE COMPREHENSIVE (05/22/2018 1:13 PM EDT) Body Surface Area 1.6 m2 Height 165 m Weight 52 kg Systolic BP 110 mmHg Diastolic BP 68 mmHg Left Atrium Dimension Anterior-Posterior 27 15 - 40 mm Aortic Valve Peak Velocity 1,320.00 mm/s Aortic Valve Peak Gradient 7.00 mmHg Aortic Sinus Diameter 28 mm Ascending Aorta Diameter 30 mm Inferior Vena Cava Diameter 11 0.0 - 21 mm Interventricular Septum Thickness 6 mm Left Ventricle Internal Diameter End Diastole 43 37 - 52 mm Left Ventricle Internal Diameter End Systole 23 22 - 35 mm Left Ventricular Outflow Tract Diameter 15.00 mm LVOT VTI REST 313.00 mm Left Ventricular Outflow Tract Velocity 1,390.00 mm/s Left Ventricular Outflow Tract Gradient at Rest 8.00 mmHg Left Ventricular Posterior Wall Thickness 6 mm Ejection Fraction 75 50 - 75 Percent Mitral Valve Deceleration Time 155.00 ms Mitral Valve A Wave Speed 941.00 mm/s Mitral Valve E Wave Speed 859.00 mm/s Right Ventricle Basal Diameter 30.00 25 - 41 mm Tricuspid Valve Peak Velocity 2.28 mm/s Raw LV EF% 71 % Left Atrial Volume 29 mL Left Atrial Volume Index 18.13 mL/m2 Aortic Valve Sinus Index 1 18 20 - 32 mm Ascending Aorta Diameter 19 mm Aortic Sinus Index 18 mm Ascending Aorta Index 19 mm Anatomical Region Laterality Modality Heart Ultrasound Narrative 05/22/2018 2:20 PM EDT Left ventricular systolic function is normal. There are no segmental left ventricular wall motion abnormalities noted. The estimated ejection fraction is 75% (Normal 50-75%). There is trace mitral regurgitation There is abnormal motion of the interatrial septum. No evidence of anterior atrial septal aneurysm or patent foramen ovale. RVSP is 24 mmHg. Normal pulmonary pressure No prior studies for comparison Left Ventricle The left ventricular cavity size and wall thickness are normal. Left ventricular systolic function is normal. There are no segmental left ventricular wall motion abnormalities noted. The estimated ejection fraction is 75% (Normal 50-75%). The left ventricular ejection fraction was measured by visual estimate. Left ventricular diastolic function appears within normal limits for age. There is no evidence of left ventricular thrombus. There is a false tendon within the left ventricular cavity which is a normal variant. Right Ventricle The right ventricular size is normal. No evidence of right ventricular hypertrophy. The right ventricular systolic function is normal. Left Atrium The left atrium is normal in size. The left atrial anterior-posterior dimension measures 27 mm (normal 15-40 mm). The LA volume is 29 mL. The LA volume index is 18.13 mL/m2 (normal indexed value is 16-34 mL/m2). The pulmonary venous flow profiles are normal. Pulmonary vein connections were not well seen. Right Atrium The right atrium is normal in size. The IVC is normal in size (2.1cm or less). The IVC measures 11 mm (normal <=21 mm). The IVC demonstrates normal collapse with inspiration which is consistent with normal RA pressure. Mitral Valve The mitral valve appears normal. The E/A ratio is 0.9. The E/E' AVG is 8.1. There is no evidence of mitral stenosis. There is trace mitral regurgitation detected by spectral and color Doppler. Tricuspid Valve The tricuspid valve appears normal. There is no evidence of tricuspid stenosis. The peak TR gradient is 21 mmHg. Assuming the RAP is 3. The estimated RVSP is 24 mmHg. Normal pulmonary pressure. There is evidence of trace tricuspid regurgitation by color and spectral Doppler. Aortic Valve The aortic valve appears normal. The aortic valve is tricuspid. There is no evidence of valvular aortic stenosis. The peak aortic valve gradient is 7 mmHg. There is no evidence of aortic regurgitation by color and spectral Doppler. The visualized portions of the thoracic aorta appear normal. Pulmonic Valve The pulmonary valve appears normal. There is no evidence of pulmonic stenosis. There is no evidence of pulmonary regurgitation by color and spectral Doppler. Pericardium There is no evidence of pericardial effusion. There no evidence of a pleural effusion. Interatrial Septum The interatrial septum appears abnormal. There is abnormal motion of the interatrial septum. Interventricular Septum Interventricular septal motion appears normal. General Findings The image quality was excellent (1). Color flow Doppler and Spectral Doppler used in the evaluation. Comparison Findings No prior studies for comparison. us Alesia Broussard NP CV ECHO ORDERABLES Final Res ult documented in this encounter Visit Diagnoses Diagnosis Syncope and collapse Syncope and collapse documented in this encounter Additional Health Concerns Infection Onset Date Last Indicated Resolved Time CoV-Risk 11/19/2019 11/19/2019 12/03/2019 1:23 AM EDT documented as of this encounter Care Teams Fish Rod Maker Relationship Specialty Start Date End Date Soledad Park MD [address] [place] [address] PCP - General 08/07/17 05/21/18 Alesia Broussard NP PCP - General Family Medicine 05/22/18 11/14/19 Malathi Trejo NP [address] [place] [address] PCP - General 11/15/19 12/28/20 Soledad Park MD [address] [place] [address] PCP - General Internal Medicine 12/29/20 Soledad Park MD [address] [place] [address] Historical LMR Provider 05/24/17 Bety Rose MD [facility] [place] [address] Dermatology 12/29/20 documented as of this encounter Additional Source Comments The information contained in this document represents components of the legal health record. It is not the complete legal health record.[facility]
--- OUTSIDE RECORDS SUMMARY | 2025-07-22 13:41 | XMS_ITS | Encounter Summary ---
Author Organization [facility] Address [address] [place] [address] Phone Care Team Providers Care Waste Duster Name Role Phone Soledad Park MD Unavailable [phone] Soledad Park MD Primary Care Provider Bety Rose MD Unavailable [phone] Encounter Details Date Type Department Care Team (Late st Contact Info) Description 09/12/2023 Ancillary Orders [facility] [address] [place] [address] [place] [address] Soledad Park MD [address] [place] [address], [address]nd [place] [address] Medicare annual wellness visit, subsequent (Primary Dx); Chronic pain of both knees; Migraine without aura and without status migrainosus, not intractable Social History Tobacco Use Types Packs/Day Years Used Date Smoking Tobacco: Never Smokeless Tobacco: Never Alcohol Use Standard Drinks/Week Comments Yes 3 (1 standard drink = 0.6 oz pur e alcohol) weely Child or Family Care Answer Date Record ed Do you have problems with on e of the following making it difficult for you to work, study, or receive health care? No 09/08/2023 Education Answer Date Recorded Are you interested in help w ith more adult education (for example, completing high school, GED, job training, learning the Montenegrin language, technical skills, or developing parenting skills)? No 09/03/2022 Food Answer Date Recorded Within the past 6 months we worried whether our food would run out before we got money to buy more. Never True 09/08/2023 Within the past 6 months the food we bought just didn't last and we didn't have enough money to get more. Never True Residential Stability Answer Date Recor ded What is your housing situation today? I have pola sing 09/08/2023 How many times have you move d in the past 12 months? Zero (I did not move) 09/08/2023 Paying for Meds Answer Date Recorded Do you have trouble paying for medicines? No 09/08/2023 Paying Utility Bills Answer Date Record ed Do you have trouble paying your heating or elect ricity bill? No 09/08/2023 Transportation Answer Date Recorded Has the lack of transportati on kept you from medical appointments or from getting medications? No 09/08/2023 Unemployment Answer Date Recorded Are you currently unemployed or working on a part-time or temporary basis, and looking for work? No 09/03/2022 Digital Access Answer Date Recorded No 09/08/2023 Yes 09/08/2023 Do you have reliable internet access at home? Ye s 09/08/2023 Do you have a device (e.g., phone, tablet, computer) with a working camera? Yes 09/08/2023 Intimate Partner Violence Answer Date R ecorded Denied Basic Needs Not on file 09/08/2023 In the past 12 months have y ou been in a relationship with a person who hurts, threatens, or tries to control you? No 09/08/2023 Worried food would run out Not on file 09/08 In the past 12 months have y ou been in a relationship with a person who hurts, threatens, or tries to control you? 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 file prior Wing Not on file Not on file Not on file documented as of this encounter Plan of Treatment Upcoming Encounters Date Type Department Care Team (Late st Contact Info) Description 09/12/2025 11:30 AM EST Office Visit [facility] [address] [place] [address] Soledad Park MD [address] [facility], 2nd Floor [place] [address] [email or web address] documented as of this encounter Results * XR KNEE 4 OR MORE VIEWS (BILATERAL) (09/12/2023 10:30 AM EST) Anatomical Region Laterality Modality Knee Bilateral, Knee Right, Knee Left Computed Radiography 09/13/2023 1:19 AM EST Impressions 09/13/2023 1:21 AM EST Right knee tricompartmental osteoarthritis, 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 Left knee tricompartmental osteoarthritis, mild to moderate in the lateral compartment. Narrative 09/13/2023 1:21 AM EST XR KNEE 4 OR MORE VIEWS (BILATERAL) Referring clinician's provided indication for this examination in Epic: Pain COMPARISON: None FINDINGS: RIGHT KNEE: Knee joint space narrowing with subchondral sclerosis, cystic change, and marginal osteophytes is moderate to severe in the lateral, mild in the medial, and mild patellofemoral compartment. Soft tissue mineralization at the cranial MCL attachment consistent with Dayanara Stieda lesion. Small joint effusion. No acute fracture or dislocation. LEFT KNEE: Knee joint space narrowing with subchondral sclerosis and marginal osteophytes is mild to moderate in the lateral, mild in the medial, and mild in the patellofemoral compartment. No joint effusion. No acute fracture or dislocation. Procedure Note Nicole Gold MD - 09/13/2023 XR KNEE 4 OR MORE VIEWS (BILATERAL) Referring clinician's provided indication for this examination in Epic:Pain COMPARISON: None FINDINGS: RIGHT KNEE: Knee joint space narrowing with subchondral sclerosis, cysticchange, and marginal osteophytes is moderate to severe in the lateral,mild in the medial, and mild patellofemoral compartment. Soft tissuemineralization at the cranial MCL attachment consistent with PellegriniStieda lesion. Small joint effusion. No acute fracture or dislocation. LEFT KNEE: Knee joint space narrowing with subchondral sclerosis andmarginal osteophytes is mild to moderate in the lateral, mild in themedial, and mild in the patellofemoral compartment. No joint effusion. Noacute fracture or dislocation. IMPRESSION: Right knee tricompartmental osteoarthritis, moderate to severe in thelateral compartment. Left knee tricompartmental osteoarthritis, mild to moderate in the lateralcompartment. Soledad Park MD IMG XR LOWER EXTREMITY Cielo l Result documented in this encounter Visit Diagnoses Diagnosis Chronic pain of both knees Medicare annual wellness visit, subsequent- Primary Chronic pain of both knees Migraine without aura and without status migrainosus, not intractable documented in this encounter Additional Health Concerns Assessment Noted Time PHQ-2 Depression Total Score: 0 09/08/19 24 11:36 AM EST documented as of this encounter Care Teams Waste Duster Relationship Specialty Start Date End Date Soledad Park MD [address] [place] [address] PCP - General Internal Medicine 12/29/20 Soledad Park MD [address] [place] [address] Historical LMR Provider 05/24/17 Bety Rose MD [address] [place] [address] Dermatology 12/29/20 documented as of this encounter Additional Source Comments The information contained in this document represents components of the legal health record. It is not the complete legal health record.[facility]
--- OUTSIDE RECORDS SUMMARY | 2025-07-22 13:41 | XMS_ITS | Clinical Summary ---
Author Organization [facility] Address [address] [place] [address] Phone Care Team Providers Care Metal Spray Operator Name Role Phone Soledad Park MD Unavailable [phone] Soledad Park MD Primary Care Provider Bety Rose MD Unavailable [phone] Allergies Active Allergy Reactions Criticality Noted Date Comments Sulfa (Sulfonamide Antibiotics) 11/2017 Medications butalbital-acetam inophen-caffeine (FIORICET) 50-300-40 mg per capsule 1 tablet as needed Active lifitegrast (XIIDRA) 5 % opthalmic solution Apply to eye 2 (two) times a day. Active multivitamins capsule Take 1 capsule by mouth daily. Active GEMTESA 75 mg tablet 3 Active mesalamine (LIALDA) 1.2 gram EC tablet 3 Active vitamin K2 40 mcg Tab Take 45 mg by mouth daily. Active propranoloL (INDERAL LA) 60 mg 24 hr capsule TAKE ONE CAPSULE BY MOUTH EVERY DAY 90 capsule 3 5 Active doxycycline monohydrate (MONODOX) 100 MG capsule Take 2 capsules (200 mg total) by mouth once as needed. To take as needed within 72 h of tick bite 2 capsule 3 5 Active alendronate (FOSAMAX) 35 MG tabletIndications :Localized osteoporosis without current pathological fracture Take 1 tablet (35 mg total) by mouth every 7 days. Take in the morning with a full glass of water, on an empty stomach, and do not take anything else by mouth or lie down for the next 30 min. 12 tablet 4 5 Active rizatriptan (MAXALT) 10 MG tabletIndications :Migraine without aura and without status migrainosus, not intractable TAKE ONE TABLET BY MOUTH NEEDED FOR MIGRAINE. MAY REPEAT IN 2 HOURS IF NEEDED 8 tablet 2 5 Active Active Problems Problem Noted Date Diagnosed Date Age-related osteoporosis wit hout current pathological fracture 03/22/2025 Overview (03/22/2025): 03/2025: start Fosamax Chronic pain of both knees 09/09/2023 Assessment & Plan (09/09/2023 8:40 PM EST): We discussed possible causes of her knee pain including arthritis. If no arthritis seen, will consider orthopedic evaluation to discuss arthroscopic surgery. Ulcerative colitis 09/06/2022 Thickened endometrium 02/14/2022 Overview (02/14/2022): Incidental finding of 9 mm with an area of fluid in the endometrium near the fundus, seen on ultrasound done for bladder symptoms Assessment & Plan (02/14/2022 8:57 AM EDT): Sonohysterogram planned with endometrial biopsy that day if indicated Cystocele, midline 09/06/2021 Assessment & Plan (09/06/2021 5:07 PM EST): She may consider an evaluation with Dr. Harrison to discuss options. Migraines Assessment & Plan (09/12/2024 4:08 PM EST): Well controlled. Assessment & Plan (09/09/2023 8:36 PM EST): She is doing well with Maxalt. Assessment & Plan (09/06/2021 5:06 PM EST): She is tolerating 20 mg propranolol TID. Will switch to XR propranolol for ease of dosing. Encounters Date Type Department Care Team Description 06/28/2025 11:30 AM EST Office Visit [facility] [address] [address] Soledad Park MD Dejnak, Rebecca, PT Chronic pain of right ankle (Primary Dx) 05/12/2025 1:00 PM EDT Office Visit [facility] [address] [address] Soledad Park MD Dejnak, Rebecca, PT Chronic pain of right ankle (Primary Dx) 05/09/2025 11:30 AM EDT Office Visit [facility] [address] [address] Soledad Park MD Dill, Eliseo Mistry, PRINCIPAL CYBER ENGINEER Chronic pain of right ankle (Primary Dx) 05/05/2025 12:15 PM EDT Office Visit [facility] [address] [address] Soledad Park MD Dejnak, Rebecca, PT Chronic pain of right ankle (Primary Dx) 05/02/2025 11:30 AM EDT Office Visit [facility] [address] [address] Soledad Park MD Dill, Eliseo Mistry, PRINCIPAL CYBER ENGINEER Chronic pain of right ankle (Primary Dx) 04/28/2025 12:15 PM EDT Office Visit [facility] [address] [address] Soledad Park MD Dejnak, Rebecca, PT Chronic pain of right ankle (Primary Dx) 04/26/2025 Refill [facility] [address] [place] [address] Soledad Park MD Medication Refill 04/25/2025 11:30 AM EDT Office Visit [facility] [address] [address] Soledad Park MD Dill, Eliseo Mistry, PRINCIPAL CYBER ENGINEER Chronic pain of right ankle (Primary Dx) from Last 3 Months Immunizations Immunization Administration Dates Next Due COVID-19 (Pre-05/26) Pfizer Vaccine, mRNA, PF 08/11/2020,07/21/2020 INFLUENZA, SPLIT VIRUS, TRIV ALENT W/ PRESERVATIVE IM 04/16/2016 Influenza Quadrivalent Adjuv anted Preservative Free IM 06/02/2023,06/03/2022 Influenza Quadrivalent MDCK Preservative Free IM 05/25/2021 Influenza Quadrivalent Preservative Free IM 05/06,06/11/2019,06/12/2018 Influenza Quadrivalent w/ Preservative IM 2016 Influenza Trivalent Adjuvant ed Preservative free IM 05/24/2024 Pneumococcal conjugate PCV20 09/06/2022 Tdap 06/18/2019 Zoster recombinant 08/28/2020,05/13/2020 Family History Medical History Relation Comments Idiopathic thrombocytopenic purpura Daughter Heart attack Father Heart disease Father Lung cancer Father Pancreatic cancer Maternal Grandfather ?, i n 50s. Family history of cancer. Stroke Maternal Grandmother Idiopathic hypertrophic suba ortic sclerosis Maternal Uncle Depression Mother ? Glaucoma Mother Idiopathic thrombocytopenic purpura Mother Supraventricular tachycardia Mother abl ated Ulcerative colitis Mother Hypertension Paternal Grandfather Kidney disease Paternal Grandfather Relation Status Comments Brother estranged Daughter Father (Age 78) Maternal Grandfather Maternal Grandmother (Age 85) Maternal Uncle Mother Paternal Grandfather in 60s Social History Tobacco Use Types Packs/Day Years Used Date Smoking Tobacco: Never Smokeless Tobacco: Never Tobacco Cessation:Counseling Given: Not Answered Alcohol Use Standard Drinks/Week Comments Yes 3 (1 standard drink = 0.6 oz pur e alcohol) weely Child or Family Care Answer Date Record ed Do you have problems with on e of the following making it difficult for you to work, study, or receive health care? No 09/10/2024 Education Answer Date Recorded Are you interested in more education? Not on amanda e 09/10/2024 Are you concerned about learning? Not on file 09/10/2024 No 09/10/2024 No 09/10/2024 Food Answer Date Recorded Within the past 6 months we worried whether our food would run out before we got money to buy more. Never True 09/10/2024 Within the past 6 months the food we bought just didn't last and we didn't have enough money to get more. Never True Residential Stability Answer Date Recor ded What is your housing situation today? I have pola sing 09/10/2024 How many times have you move d in the past 12 months? Zero (I did not move) 09/10/2024 Paying for Meds Answer Date Recorded Do you have trouble paying for medicines? No 09/10/2024 Paying Utility Bills Answer Date Record ed Do you have trouble paying your heating or elect ricity bill? No 09/10/2024 Transportation Answer Date Recorded Has the lack of transportati on kept you from medical appointments or from getting medications? No 09/10/2024 Unemployment Answer Date Recorded Are you currently unemployed or working on a part-time or temporary basis, and looking for work? No 09/03/2022 Digital Access Answer Date Recorded No 09/10/2024 Yes 09/10/2024 Do you have reliable internet access at home? Ye s 09/10/2024 Do you have a device (e.g., phone, tablet, computer) with a working camera? Yes 09/10/2024 Intimate Partner Violence Answer Date R ecorded Denied Basic Needs Not on file 09/10/2024 In the past 12 months have y ou been in a relationship with a person who hurts, threatens, or tries to control you? No 09/10/2024 Worried food would run out Not on file 09/10 In the past 12 months have y ou been in a relationship with a person who hurts, threatens, or tries to control you? 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 prior Wing Not on file Not on file Not on file Last Filed Vital Signs Vital Sign Reading Time Taken Comments Blood Pressure 90/60 09/10/2024 11:33 AM EST Pulse 67 09/10/2024 11:33 AM EST Temperature 36 C (96.8 F) 09/10/2024 11:33 AM EST Respiratory Rate 18 06/18/2024 12:59 PM EST Oxygen Saturation 97% 09/10/2024 11:33 AM EST Inhaled Oxygen Concentration - - Weight 51 kg (112 lb 6.4 oz) 09/10/2024 11:33 AM EST Height 164.6 cm (5' 4.8 ) 09/10/2024 11:33 AM ES T Body Mass Index 18.82 09/10/2024 11:33 AM EST Plan of Treatment Upcoming Encounters Date Type Department Care Team (Late st Contact Info) Description 09/12/2025 11:30 AM EST Office Visit [facility] [address] [place] [address] [place] [address] Soledad Park MD [address] [facility], 2nd [place] [address] [email or web address] Health Maintenance Due Date Last Done Comments HEPATITIS C SCREENING 1974 COLOGUARD 2001 COLONOSCOPY 2001 COLORECTAL CANCER SCREENING 2001 FIT TEST 2001 FOBT 2001 SIGMOIDOSCOPY 2001 VIRTUAL COLONOSCOPY 2001 INFLUENZA VACCINE (#1) 2025 , 06/02/2023, 06/03/2022, Additional history exists COVID-19 VACCINE ( season) 2025 06/15/2024, 02/20/2024, 07/10/2023, Additional history exists DEPRESSION SCREENING 09/10/2025 09/10/2024, 09/08/19 24 MAMMOGRAM 07/29/2026 07/29/2024, 07/05, 07/15/2022, Additional history exists Adult Td,Tdap Booster 06/18/2029 06/18/2019 LIPID PANEL 09/24/2029 09/24/2024, 10/08/2022 RSV VACCINE (1 - 1-dose 75+ series) 2031 ZOSTER VACCINES Completed 08/28/2020, 05/13/2020 PNEUMOCOCCAL VACCINES (50+ years) Completed 09/06/2022 SMOKING STATUS SCREENING (Once After 26 Yrs) Completed 09/10/2024 OSTEOPOROSIS SCREENING INITIAL (ONE-TIME) Completed 03/01/2025, 02/20/2023 HEPATITIS A VACCINES Aged Out No long er eligible based on patient's age to complete this topic HIB VACCINES Aged Out No longer eligi ble based on patient's age to complete this topic MENINGOCOCCAL VACCINES (ACWY) Aged Out No longer eligible based on patient's age to complete this topic MENINGOCOCCAL VACCINES (B) Aged Out N o longer eligible based on patient's age to complete this topic Medical Devices Not on file Procedures Procedure Name Priority Date/Time Associated Diagnosis Comments BD DXA MONITORING Routine 03/01/2025 3:0 9 PM EDT Localized osteoporosis without current pathological fracture LIPID PANEL Routine 09/24/2024 9:30 AM EST Medicare annual wellness visit, subsequent HM MAMMOGRAPHY Routine 07/29/2024 5:25 PM EST from Last 3 Months or Most Recently Relevant to Health Maintenance Results * DXA Monitoring (03/01/2025 3:09 PM EDT) Anatomical Region Laterality Modality Bone Density Bone Density Soledad Park MD [facility] BD BONE DENSITY DEXA Fi nal Result * (ABNORMAL) Lipid panel (09/24/2024 9:30 AM EST) HDL 76 mg/dL [facility] Comment: Interpretation <40 mg/dL: Low HDL cholesterol (major risk factor for CHD) Greater than or equal to 60 mg/dL: High HDL cholesterol ( negative risk factor for CHD) HDL - cholesterol is affected by a number of factors, e.g. smoking, excerise, hormones, sex and age. CHOLESTEROL 214 0 - 240 mg/dL [facility] TRIGLYCERIDES 81 30 - 160 mg/dL [facility] LDL 122 50 - 129 mg/dL [facility] Comment: LDL levels in terms of risk for coronary heart disease: <100 mg/dL: Optimal 100-129 mg/dL: Near or above optimal 130-159 mg/dL: Borderline high 160-189 mg/dL: High >190 mg/dL: Very High CARDIAC RISK RATIO 2.8(L) 3.3 - 4.4 C [facility] Blood 09/24/2024 9:30 AM EST 09/24/2024 9:34 AM EST us Soledad Park MD LAB BLOOD BKR ORDERABLES Fi nal Result [address] [address] * MAMMOGRAPHY FOR RESULT ENTRY ONLY (07/29/2024 5:25 PM EST) us Historical Provider HEALTH MAINTENANCE Final Result from Last 3 Months or Most Recently Relevant to Health Maintenance Insurance [facility] MEDICARE PPO BLUE REPLACEMENT [place] MEDICARE PPO BLUE REPLACEMENT Care Teams Metal Spray Operator Relationship Specialty Start Date End Date Soledad Park MD [address] [place] [address], [address] [place] [id number] PCP - General Internal Medicine 12/29/20 Soledad Park MD [address] [place] [address], [address] [place] [address] Historical LMR Provider 05/24/17 Bety Rose MD [facility] [address] Dermatology 12/29/20 Additional Source Comments The information contained in this document represents components of the legal health record. It is not the complete legal health record.[facility]
--- OUTSIDE RECORDS SUMMARY | 2025-07-22 13:41 | XMS_ITS | Encounter Summary ---
Author Organization [facility] Address [address] [facility] [address] [place] [address] Phone Care Team Providers Care Automated Equipment Engineer Technician Name Role Phone Soledad Park MD Unavailable [phone] Soledad Park MD Primary Care Provider Alesia Broussard ROCK CLIMBING INSTRUCTOR Primary Care Provider Unava Malathi Peterson ROCK CLIMBING INSTRUCTOR Primary Care Provider Soledad Park MD Primary Care Provider Bety Rose MD Unavailable [phone] Encounter Details Date Type Department Care Team (Late st Contact Info) Description 11/05/2017 Transcribe Orders [facility] [address] [place] [address] Soledad Park MD [address] [place] [address], [address] [place] [address] Cough (Primary Dx) Social History Tobacco Use [...] 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 on file prior Wing Not on file Not on file Not on file documented as of this encounter Plan of Treatment Upcoming Encounters Date Type Department Care Team (Late st Contact Info) Description 09/12/2025 11:30 AM EST Office Visit [facility] Primary Care [address] [place] [address] Soledad Park MD [address] [place] [address], [address] [facility] [place] [address] documented as of this encounter Results * Miscellaneous lab test (11/05/2017 4:51 PM EDT) TESTS REQUESTED PERTUSSIS [facility] SPECIMEN/TUBE TYPE RED TOP [facility] REQUEST RECEIVED Request received. A separate order for the requested test will be generated by the laboratory. [facility] Blood 11/05/2017 4:51 PM EDT 11/05/2017 4:52 PM EDT Soledad Park MD LAB BLOOD ORDERABLES Final Result Performing Organization Address City/State/[facility] Co de Phone Number [address] [address] documented in this encounter Visit Diagnoses Diagnosis Cough- Primary documented in this encounter Additional Health Concerns Infection Onset Date Last Indicated Resolved Time CoV-Risk 11/19/2019 11/19/2019 12/03/2019 1:23 AM EDT documented as of this encounter Care Teams Automated Equipment Engineer Technician Relationship Specialty Start Date End Date Soledad Park MD [address] [place] [address], [address] [place] [address] [place] [address] [email or web address] PCP - General 08/07/17 05/21/18 Alesia Broussard NP PCP - General Family Medicine 05/22/18 11/14/19 Malathi Trejo NP [address] [place] [address] PCP - General 11/15/19 12/28/20 Soledad Park MD [address] [place] [address], [address] [place] [address] PCP - General Internal Medicine 12/29/20 Soledad Park MD [address] [place] [address], [address] [place] [address] Historical LMR Provider 05/24/17 Bety Rose MD [address] [place] [address] Dermatology 12/29/20 documented as of this encounter Additional Source Comments The information contained in this document represents components of the legal health record. It is not the complete legal health record.[facility]
--- OUTSIDE RECORDS SUMMARY | 2025-07-22 13:41 | XMS_ITS | Patient Health Record ---
Author Organization [facility] Alirio [facility] Address [address] [place] [address] Care Team Providers Care Dynamometer Mechanic Name Role Phone Soledad Park Primary Care Provider Unavailab Jose Anaya Unavailable [phone] Allergies Allergen (clinical drug ingredient) Drug/Non Drug [...] Problem Status W/U Status Risk Notes Problem Acquired hallux rigidus (2276388) Hallux rigidus, left foot (M20.22) Active confirmed Problem Peripheral sensory neuropathy (587876842) Peripheral sensory neuropathy (G60.8) Active confirmed Plan Of Treatment Pending Test Test Name Order Date X ray : Foot, left 3V 08/28/2018 X ray : Foot, left 3V 01/12/2019 X ray : Foot, left 3V 02/11/2019 X ray : Foot, left 3V 10/25/2022 X ray : Foot, right 3V 10/25/2022 [id number], [id number]/INJECT, JOINT/BURSA 0 08/28/2018 X ray : Ankle, right 3V 08/28/2018 Insurance Providers Payer Name Payer Address Payer Phone Subscriber Number Group Number Insured Name Patient Relationship to Insured Coverage Start Date Coverage End Date [facility] 66 Medicare Preferred [address] [place] [address] [phone] [id number] Vaishnavi Morales Self - patient is the [...]
--- OUTSIDE RECORDS SUMMARY | 2025-07-22 13:41 | XMS_ITS | Encounter Summary ---
Author Organization [facility] Address [address] [place] [address] Phone Care Team Providers Care Mason Apprentice Name Role Phone Soledad Park MD Unavailable Soledad Park MD Primary Care Provider Alesia Broussard SOLE ASSESSOR Primary Care Provider Unava Malathi Peterson SOLE ASSESSOR Primary Care Provider Soledad Park MD Primary Care Provider Bety Rose MD Unavailable [phone] Encounter Details Date Type Department Care Team (Late st Contact Info) Description 11/05/2017 Transcribe Orders [facility] [address] [place] [address] Soledad Park MD [address] [place] [address], [address] [place] [address] Social History Tobacco Use Types Packs/Day Years [...] 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[employer] Not on file N ot on file Not on file prior Wing Not on file Not on file Not on file documented as of this encounter Plan of Treatment Upcoming Encounters Date Type Department Care Team (Late st Contact Info) Description 09/12/2025 11:30 AM EST Office Visit [facility] [address] [place] [id number] Soledad Park MD [address] [place] [phone] documented as of this encounter Visit Diagnoses Not on filedocumented in this encounter Additional Health Concerns Infection Onset Date Last Indicated Resolved Time CoV-Risk 11/19/2019 11/19/2019 12/03/2019 1:23 AM EDT documented as of this encounter Care Teams Mason Apprentice Relationship Specialty Start Date End Date Soledad Park MD [address] [place] [id number] PCP - General 08/07/17 05/21/18 Alesia Broussard, SOLE ASSESSOR PCP - General Family Medicine 05/22/18 11/14/19 Malathi Trejo, MILA [address] [place] [id number] PCP - General 11/15/19 12/28/20 Soledad Park MD [address] [place] [address] PCP - General Internal Medicine 12/29/20 Soledad Park MD [address] [place] [phone] Historical LMR Provider 05/24/17 Bety Rose MD [address] [place] [address] Dermatology 12/29/20 documented as of this encounter Additional Source Comments The information contained in this document represents components of the legal health record. It is not the complete legal health record.[facility]
== END 2025-07-22 11:33 | disposition home or self-care (01) ==
LOC: HO.MAMMO 11:32
PROVIDERS: PCP Internal Medicine; Visit Provider Internal Medicine
DX: Z12.31 Encounter for screening mammogram for malignant neoplasm of breast (principal)
CPT/HCPCS: 77063; 77067

== ENCOUNTER → 2025-07-22 11:45 | Outpatient (BNV) | payer MEDICARE, SELFPAY | PROVIDERS: PCP Internal Medicine; Visit Provider Internal Medicine | DX: Z12.31 Encounter for screening mammogram for malignant neoplasm of breast (principal) | CPT/HCPCS: 77063; 77067 ==